=== PATIENT | male | born 1990 | race Caucasian/White ===

== ENCOUNTER 2022-05-20 22:47 | Emergency (ER) | payer SELFPAY ==
[2022-05-20] MEDS ORDERED: Sodium Chloride 0.9% 1,000 ML IV ONE (23:12)
[2022-05-20] MEDS: Sodium Chloride 0.9% 2.5 ML Syringe FLUSH PRN (23:34)
[2022-05-20] MEDS: Sodium Chloride 0.9% 10 ML Syringe FLUSH PRN (23:35)
[2022-05-20 23:40] LABS: CARBON DIOXIDE,CO2 24.8 mmol/L (21.0-32.0); POTASSIUM,K 3.3 mmol/L (3.5-5.1)
[2022-05-21] MEDS ORDERED: Ketorolac 30 MG/ML SDV IVPUSH ONE (00:10)
[2022-05-21] MEDS ORDERED: Sodium Chloride 0.9% 1,000 ML IV ONE (00:11)
[2022-05-21] MEDS ORDERED: Acetaminophen 325 MG Tab PO ONE (00:11)
[2022-05-21 00:18] LABS: CORONAVIRUS COVID-19 NAA POSITIVE (NEGATIVE); INFLUENZA A NAA NEGATIVE (NEGATIVE); INFLUENZA B NAA NEGATIVE (NEGATIVE); RESPIRATORY SYNCYTIAL VIR NAA NEGATIVE (NEGATIVE)
[2022-05-21] MEDS: Sodium Chloride 0.9% 10 ML Syringe FLUSH PRN (01:09)
[2022-05-21] MEDS: Sodium Chloride 0.9% 2.5 ML Syringe FLUSH PRN (01:09)
== END 2022-05-21 01:55 | disposition home or self-care (01) ==
LOC: MW.ED 22:47
DX: U07.1 COVID-19 (principal); Z91.040 Latex allergy status
CPT/HCPCS: 0241U; 36415; 71045; 80053; 83690; 84484; 85025; 93005; 96361; 96374; 99284; A9270; J1885; J3490; J7030

== ENCOUNTER 2022-12-31 10:08 | Emergency (ER) | payer SELFPAY ==
[2022-12-31] MEDS ORDERED: Aspirin 81 MG Tab.Chew PO ONE (10:13)
[2022-12-31 10:23] LABS: HEMATOCRIT 46.1 % (38.0-50.0); HEMOGLOBIN 16.1 g/dL (13.0-17.0); MEAN CORPUSCULAR HGB CONC 34.9 g/dL (31.0-37.0); MEAN CORPUSCULAR VOLUME 85.8 fL (80.0-98.0); PLATELET COUNT,PLT 338 K/uL (150-400); RED BLOOD CELL COUNT 5.37 M/uL (4.50-5.90); WHITE BLOOD CELL COUNT,WBC 10.07 K/uL (4.0-11.0)
[2022-12-31 10:44] LABS: BASOPHILS ABSOLUTE MAN 0.1 (0.0-0.1); BASOPHILS PERCENT MAN 1 % (0.0-1.5); EOSINOPHILS ABSOLUTE MAN 0.1 (0.0-0.7); EOSINOPHILS PERCENT MAN 1 % (0.0-7.0); LYMPHOCYTES PERCENT MAN 40 % (16.0-40.0); MONOCYTES ABSOLUTE MAN 0.6 (0.0-0.8); MONOCYTES PERCENT MAN 6 % (0.0-15.0); SEG NEUTROPHILS ABSOLUTE MAN 5.2 (1.4-5.7); SEG NEUTROPHILS PERCENT MAN 52 % (48.0-80.0)
[2022-12-31] MEDS ORDERED: Ketorolac 30 MG/ML SDV IVPUSH ONE (10:55)
[2022-12-31 10:56] LABS: A/G RATIO 1.2 (0.9-1.6); ALANINE AMINOTRANSFERASE,ALT 32 IU/L (14-63); ALBUMIN 4.1 g/dL (3.4-5.0); ALKALINE PHOSPHATASE 77 U/L (46-116); ASPARTATE AMNIOTRANSFERASE,AST 17 IU/L (15-37); BILIRUBIN TOTAL 0.3 mg/dL (0.2-1.0); BLOOD UREA NITROGEN,BUN 14 mg/dL (7.0-18.0); CALCIUM 8.9 mg/dL (8.5-10.1); CARBON DIOXIDE,CO2 25.4 mmol/L (21.0-32.0); CHLORIDE,CL 103 mmol/L (98-107); CREATININE 0.9 mg/dL (0.8-1.3); EST CRCL DRUG DOSING (CG) 121.67 mL/min; GLUCOSE RANDOM 101 mg/dL (74-106); POTASSIUM,K 4.4 mmol/L (3.5-5.1); PROTEIN TOTAL,TP 7.5 g/dL (6.4-8.2); SODIUM,NA 137 mmol/L (136-148)
[2022-12-31 10:57] LABS: ESTIMATED GFR 116 mL/min (>60)
== END 2022-12-31 11:24 | disposition home or self-care (01) ==
LOC: MW.ED 10:08
DX: F41.9 Anxiety disorder, unspecified (principal); Z91.040 Latex allergy status
CPT/HCPCS: 36415; 71045; 80053; 84484; 85025; 93005; 96374; 99285; A9270; J1885

== ENCOUNTER 2023-01-14 10:58 | Emergency (ER) | payer SELFPAY ==
[2023-01-14 12:34] LABS: BASOPHILS ABSOLUTE AUTO 0.1 K/uL (0.0-0.1); EOSINOPHILS ABSOLUTE AUTO 0.1 K/uL (0.0-0.7); EOSINOPHILS PERCENT AUTO 1.3 % (0.0-7.0); HEMATOCRIT 45.2 % (38.0-50.0); HEMOGLOBIN 15.8 g/dL (13.0-17.0); LYMPHOCYTES ABSOLUTE AUTO 2.8 K/uL (0.6-2.4); LYMPHOCYTES PERCENT AUTO 31.9 % (16.0-40.0); MEAN CORPUSCULAR HEMOGLOBIN 29.9 pg (27.0-32.0); MEAN CORPUSCULAR VOLUME 85.4 fL (80.0-98.0); MONOCYTES ABSOLUTE AUTO 0.8 K/uL (0.0-0.8); MONOCYTES PERCENT AUTO 9.1 % (0.0-15.0); NEUTROPHILS ABSOLUTE AUTO 5.1 K/uL (1.4-5.7); NEUTROPHILS PERCENT AUTO 56.7 % (48.0-80.0); NRBC ABSOLUTE 0 K/uL; PLATELET COUNT,PLT 303 K/uL (150-400); RED BLOOD CELL COUNT 5.29 M/uL (4.50-5.90); WHITE BLOOD CELL COUNT,WBC 8.91 K/uL (4.0-11.0)
[2023-01-14 13:13] LABS: A/G RATIO 1.3 (0.9-1.6); ALANINE AMINOTRANSFERASE,ALT 27 IU/L (14-63); ALBUMIN 4.4 g/dL (3.4-5.0); ALKALINE PHOSPHATASE 85 U/L (46-116); ASPARTATE AMNIOTRANSFERASE,AST 16 IU/L (15-37); BILIRUBIN TOTAL 0.9 mg/dL (0.2-1.0); BLOOD UREA NITROGEN,BUN 13 mg/dL (7.0-18.0); CALCIUM 9.1 mg/dL (8.5-10.1); CARBON DIOXIDE,CO2 21.5 mmol/L (21.0-32.0); CHLORIDE,CL 102 mmol/L (98-107); CREATININE 0.9 mg/dL (0.8-1.3); EST CRCL DRUG DOSING (CG) 121.67 mL/min; GLUCOSE RANDOM 85 mg/dL (74-106); POTASSIUM,K 3.7 mmol/L (3.5-5.1); PROTEIN TOTAL,TP 7.7 g/dL (6.4-8.2); SODIUM,NA 138 mmol/L (136-148); TSH ULTRASENSITIVE 0.64 uIU/mL (0.36-3.74)
[2023-01-14 13:17] LABS: ESTIMATED GFR 116 mL/min (>60)
== END 2023-01-14 13:40 | disposition home or self-care (01) ==
LOC: MW.ED 10:58
DX: R07.9 Chest pain, unspecified (principal); F41.9 Anxiety disorder, unspecified; Z91.040 Latex allergy status
CPT/HCPCS: 36415; 71045; 71045-26; 80053; 84443; 84484; 85025; 93005; 99285